=== PATIENT | male | born 1985 | race African-American/Black ===

== ENCOUNTER 2020-07-14 15:12 | Emergency (ER) | payer OTHER ==
[~2020-07-14] VITALS: Ht 182.9 cm; Wt 110.9 kg
[2020-07-14] MEDS ORDERED: KETOROLAC TROMETHAMINE 10 MG TAB PO ONE (16:40)
[2020-07-14] MEDS ORDERED: METOCLOPRAMIDE 10 MG TAB PO ONE (16:40)
[2020-07-14 18:04] VITALS: BP 136/83
== END 2020-07-14 18:07 | disposition home or self-care (01) ==
LOC: M ED 15:12
DX: R51.9 Headache, unspecified (principal); R68.83 Chills (without fever); R09.81 Nasal congestion
CPT/HCPCS: 87804; 99283; U0003

== ENCOUNTER 2022-01-14 12:40 | Inpatient (IN) | payer OTHER ==
[~2022-01-14] VITALS: Ht 182.9 cm; Wt 108.5 kg
[2022-01-14 14:03] LABS: HEMATOCRIT 47.1 % (42.0-52.0); HEMOGLOBIN 16.1 g/dl (13.5-17.5); MEAN CORPUSCULAR HEMOGLOBIN 31.2 pg (27.0-33.0); MEAN CORPUSCULAR HGB CONC 34.2 g/dl (32.0-36.5); MEAN CORPUSCULAR VOLUME 91.3 fl (80.0-96.0); PLATELET COUNT, AUTOMATED 227 10^3/uL (150-450); RED BLOOD COUNT 5.16 10^6/uL (4.30-6.10); WHITE BLOOD COUNT 5.9 10^3/uL (4.0-10.0)
[2022-01-14 14:35] LABS: RSV AMPLIFICATION NEGATIVE (NEGATIVE)
[2022-01-14 14:45] LABS: ACETAMINOPHEN LEVEL < 2.0 UG/ML (10.0-30.0); ALBUMIN 4.3 GM/DL (3.2-5.2); ALT/SGPT 22 U/L (12-78); BILIRUBIN,DIRECT < 0.1 MG/DL (0.0-0.2); BILIRUBIN,TOTAL 0.4 MG/DL (0.2-1.0); BLOOD UREA NITROGEN 9 MG/DL (7-18); CALCIUM LEVEL 9.6 MG/DL (8.5-10.1); CARBON DIOXIDE LEVEL 30 MEQ/L (21-32); CHLORIDE LEVEL 104 MEQ/L (98-107); CREATININE FOR GFR 1.44 MG/DL (0.70-1.30); ETHYL ALCOHOL (ETHANOL) < 0.003 % (0.000-0.010); GLOMERULAR FILTRATION RATE > 60.0 (>60); GLUCOSE, FASTING 90 MG/DL (70-100); POTASSIUM SERUM 4.3 MEQ/L (3.5-5.1); SALICYLATE LEVEL < 1.7 MG/DL (5.0-30.0); SODIUM LEVEL 138 MEQ/L (136-145); TOTAL PROTEIN 7.9 GM/DL (6.4-8.2)
[2022-01-14 14:49] LABS: AMPHETAMINES LEVEL URINE NEGATIVE (NEGATIVE); BARBITURATES URINE NEGATIVE (NEGATIVE); BENZODIAZEPINES URINE NEGATIVE (NEGATIVE); CANNABINOIDS URINE NEGATIVE (NEGATIVE); COCAINE METABOLITE URINE NEGATIVE (NEGATIVE); METHADONE URINE NEGATIVE (NEGATIVE); OPIATES URINE NEGATIVE (NEGATIVE); PHENCYCLIDINE URINE NEGATIVE (NEGATIVE)
[2022-01-14] MEDS ORDERED: HOME MED LIST COMPLETE! XX SCH (20:00)
[2022-01-16] MEDS ORDERED: NICOTINE 21MG/24HR 1 EA TRANSDERMAL TD SCH (09:00)
[2022-01-16] MEDS ORDERED: IBUPROFEN 400MG TAB PO PRN (13:55)
[2022-01-16] MEDS ORDERED: MOM 30ML SUSPENSION UDC PO PRN (13:55)
[2022-01-16] MEDS ORDERED: traZODone 50 MG TAB PO PRN (13:55)
[2022-01-16] MEDS ORDERED: MAALOX 30 ML SUSP *UDC PO PRN (13:55)
[2022-01-16 15:22] VITALS: BP 147/95
[2022-01-17 06:48] VITALS: BP 114/61
[2022-01-17 18:09] VITALS: BP 120/86
[2022-01-18 06:14] VITALS: BP 144/86
== END 2022-01-18 10:10 | disposition home or self-care (01) | DRG 882 ==
LOC: M ED 12:40 → EDBD 12:40 → M ED INP 01-16 13:53 → M PSY 01-16 14:42
PROVIDERS: ADMIT Student in an Organized Health Care Education/Training Program; ATTEND Student in an Organized Health Care Education/Training Program
DX: F43.20 Adjustment disorder, unspecified (principal); R45.851 Suicidal ideations; Z20.822 Contact with and (suspected) exposure to COVID-19; Z56.6 Other physical and mental strain related to work